=== PATIENT | female | born 1975 | race Hispanic/Latino ===

== ENCOUNTER 2016-10-06 10:36 | Emergency (ER) | payer OTHER ==
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
[2016-10-06] MEDS ORDERED: NORCO 5/325 PO ONE (12:36)
[2016-10-06] MEDS ORDERED: FLEXERIL PO ONE (12:36)
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
[2016-10-06 14:00] VITALS: BP 150/92
== END 2016-10-06 14:51 | disposition home or self-care (01) ==
LOC: ED 10:36
DX: M41.9 Scoliosis, unspecified (principal); I10 Essential (primary) hypertension; M79.1 Myalgia; M54.6 Pain in thoracic spine; M50.30 Other cervical disc degeneration, unspecified cervical region; F17.200 Nicotine dependence, unspecified, uncomplicated; V49.59XA Passenger injured in collision with other motor vehicles in traffic accident, initial encounter; Y93.9 Activity, unspecified; Y92.9 Unspecified place or not applicable; Y99.9 Unspecified external cause status
CPT/HCPCS: 72040; 72072; 99283

== ENCOUNTER 2018-12-04 23:16 | Emergency (ER) | payer MEDICAID, OTHER ==
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
[2018-12-05] MEDS ORDERED: ANTIBIOTIC OINT TP ONE (00:54)
[2018-12-05] MEDS ORDERED: ULTRAM PO ONE (00:54)
[2018-12-05 01:45] VITALS: BP 135/78
== END 2018-12-05 01:45 | disposition home or self-care (01) ==
LOC: ED 23:16
DX: T22.211A Burn of second degree of right forearm, initial encounter (principal); I11.0 Hypertensive heart disease with heart failure; I50.9 Heart failure, unspecified; F17.200 Nicotine dependence, unspecified, uncomplicated; Z98.890 Other specified postprocedural states; Z98.51 Tubal ligation status; Z88.6 Allergy status to analgesic agent; X12.XXXA Contact with other hot fluids, initial encounter; Y93.89 Activity, other specified; Y92.89 Other specified places as the place of occurrence of the external cause; Y99.8 Other external cause status
CPT/HCPCS: 99282